=== PATIENT | female | born 1975 ===

== ENCOUNTER 2016-06-23 06:48 | Emergency (ER) | payer OTHER ==
[2016-06-23 06:57] VITALS: TEMP 98
--- NOTE | 2016-06-23 07:46 | ED PDOC ---
HPI: General Adult Time Seen by Provider: 06/23/16 07:05 Chief Complaint (Nursing): Psychiatric Evaluation Chief Complaint (Provider): crisis evaluation History Per: Family (daughter) History/Exam Limitations: no limitations Additional Complaint(s): 41yo female comes with family member for crisis evaluation of anxiety. Per daughter patient has Hx depression,taking depakote. 2 weeks ago patient had argument with who is no longer living at home. Daughter states patient has 1x admission for depression 15+ years ago. No suicidal or homicidal ideations. Neurologist: Haley Hook Past Medical History Reviewed: Historical Data, Nursing Documentation, Vital Signs Vital Signs: Last Vital Signs Temp 98 F 06/23/16 06:52 Pulse 86 06/23/16 06:52 Resp 16 06/23/16 06:52 BP 121/86 06/23/16 06:52 Pulse Ox 98 06/23/16 08:58 - Medical History PMH: Anxiety, Depression, Seizures - Family History Family History: States: Unknown Family Hx - Living Arrangements Living Arrangements: With Family - Social History Alcohol: None Drugs: Denies - Immunization History Hx Tetanus Toxoid Vaccination: No Hx Influenza Vaccination: Yes Hx Pneumococcal Vaccination: No - Home Medications Home Medications: Ambulatory Orders Medication Instructions Recorded Azithromycin [Zithromax Tri-Elliot] 500 mg PO DAILY #3 tab 11/25/13 Ondansetron ODT [Zofran ODT] 1 odt PO BID PRN #6 odt 11/25/13 ALPRAZolam [Xanax] 0.25 mg PO BID PRN #6 tab 06/23/16 - Allergies Allergies/Adverse Reactions: Allergies Allergy/AdvReac Type Severity Reaction Status Date / Time No Known Allergies Allergy Unverified 11/24/13 23:46 Review of Systems ROS Statement: Except As Marked, All Systems Reviewed And Found Negative Psych: Positive for: Anxiety, Depression. Negative for: Suicidal ideation, Other (homicidal ideation) Physical Exam - Reviewed Nursing Documentation Reviewed: Yes Vital Signs Reviewed: Yes - Physical Exam Appears: Positive for: Non-toxic, No Acute Distress Head Exam: Positive for: ATRAUMATIC, NORMAL INSPECTION, NORMOCEPHALIC Skin: Positive for: Warm, Dry Eye Exam: Positive for: EOMI, PERRL Cardiovascular/Chest: Positive for: Regular Rate, Rhythm Respiratory: Positive for: Normal Breath Sounds. Negative for: Rales, Rhonchi, Wheezing Extremity: Positive for: Normal ROM Neurologic/Psych: Positive for: Mood/Affect (flat affect), Other (poor eye contact, cooperative) - Laboratory Results Result Diagrams: 06/23/16 07:40 06/23/16 07:30 - ECG O2 Sat by Pulse Oximetry: 98 (RA) Pulse Ox Interpretation: Normal Medical Decision Making Medical Decision Makin medically cleared for crisis screening. [id number] case discussed with brush worker Safia who states patient will be discharged Dx depression per Dr. Graham. plant worker Safia is setting up outpatient therapy followup for the patient. [id number] per brush worker Safia patient has appointment with our [facility] tomorrow. Disposition - Clinical Impression Clinical Impression: Depressed, Anxiety - Patient ED Disposition Is Patient to be Admitted: No Counseled Patient/Family Regarding: Studies Performed, Diagnosis, Need For Followup, Rx Given - Disposition Referrals: [facility] [Outside] Disposition: Routine/Home Disposition Time: 08:58 Condition: STABLE Additional Instructions: See mental health clinic tomorrow as directed. Return to ER for any worse or new symptoms. Prescriptions: ALPRAZolam [Xanax] 0.25 mg PO BID PRN #6 tab PRN Reason: Anxiety Instructions: Anxiety (ED), Depression (ED) Print Language: CHINESE Additional Comments - Additional Comments Additional Comments: Scribe Attestation Documented by Joaquín Del Toro acting as a scribe for Bettye Chandler DO. Provider Attestation: All medical record entries made by the Scribe were at my direction and personally dictated by me. I have reviewed the chart and agree that the record accurately reflects my personal performance of the history, physical exam, medical decision making, and the department course for this patient. I have also personally directed, reviewed, and agree with the discharge instructions and disposition.
[2016-06-23 08:07] LABS: BASO # 0.1 K/uL (0.0-0.2); BASO % 1.2 % (0.0-2.0); EOS # 0.1 K/uL (0.0-0.7); EOS % 1.4 % (0.0-4.0); HEMATOCRIT 37.8 % (34.0-47.0); LYMPH # 1.8 K/uL (1.0-4.3); MEAN CORPUSCULAR HEMOGLOBIN 23.3 pg (27.0-31.0); MEAN CORPUSCULAR HGB CONC 31.5 g/dL (33.0-37.0); MEAN PLATELET VOLUME 9.5 fl (7.2-11.7); MONO # 0.3 K/uL (0.0-0.8); MONO % 6.2 % (0.0-10.0); NEUT # 3.1 K/uL (1.8-7.0); NEUT % 58.2 % (50.0-75.0); RED CELL DISTRIBUTION WIDTH 14.1 % (11.5-14.5); WHITE BLOOD COUNT 5.4 K/uL (4.8-10.8)
[2016-06-23 08:25] LABS: ALB/GLOB RATIO 1.2 (1.0-2.1); ALKALINE PHOSPHATASE 53 U/L (38-126); ALT/SGPT 25 U/L (9-52); AST/SGOT 17 U/L (14-36); BILIRUBIN,TOTAL 0.6 mg/dl (0.2-1.3); BLOOD UREA NITROGEN 8 mg/dl (7-17); CALCIUM 9.3 mg/dL (8.4-10.2); CARBON DIOXIDE 24 mmol/L (22-30); CHLORIDE 107 mmol/L (98-107); GFR AFRICAN-AMERICAN > 60; GLUCOSE,RANDOM 87 mg/dL (65-105); SODIUM 141 mmol/l (132-148); TOTAL PROTEIN 7.5 G/DL (6.3-8.2)
[2016-06-23 11:08] VITALS: BP 107/73; PULSE 65; RESP 20; O2SAT 99
--- NOTE | 2016-06-24 02:14 | CARD ---
APPROVED REPORT EKG Measurement Heart [id number] <Conclusion> Sinus bradycardia Otherwise normal ECG
== END 2016-06-23 10:55 | disposition home or self-care (01) ==
LOC: H.ER 06:48
DX: F41.9 Anxiety disorder, unspecified (principal); F32.9 Major depressive disorder, single episode, unspecified

== ENCOUNTER 2018-02-14 11:04 | Emergency (ER) | payer MEDICAID, OTHER ==
[2018-02-14 11:08] VITALS: BMI 28.5
[2018-02-14 11:09] VITALS: TEMP 99
--- NOTE | 2018-02-14 11:28 | ED PDOC ---
HPI: Back Time Seen by Provider: 02/14/18 11:14 Chief Complaint (Nursing): Back Pain Chief Complaint (Provider): low back pain History Per: Patient, Family (daughter) History/Exam Limitations: no limitations Onset/Duration Of Symptoms: Days (1) Current Symptoms Are (Timing): Still Present Exacerbating Factor(s): Turning, Movement Additional Complaint(s): 42 y/o female brought in by EMS for evaluation of low back pain x 1 day. Patient states she has a history of lspine disc herniation; yesterday while mopping the floor felt a sharp pain in lower back radiating to both legs, causing her to fall. Patient states this morning she was unable to get out of bed due to pain, so she took Two Percocets and came to ED. Denies numbness/weakness lower extremities, bowel/bladder incontinence. Past Medical History Reviewed: Historical Data, Nursing Documentation, Vital Signs Vital Signs: Last Vital Signs Temp 99 F 02/14/18 11:08 Pulse 70 02/14/18 11:08 Resp 20 02/14/18 11:08 BP 130/93 H 02/14/18 11:08 Pulse Ox 98 02/14/18 11:08 - Medical History PMH: Anxiety, Back Problems, Depression, Seizures Denies: Diabetes, Hepatitis, HIV, HTN, Sexually Transmitted Disease - Family History Family History: States: Unknown Family Hx - Immunization History Hx Tetanus Toxoid Vaccination: No Hx Influenza Vaccination: Yes Hx Pneumococcal Vaccination: No - Home Medications Home Medications: Ambulatory Orders Medication Instructions Recorded Azithromycin [Zithromax Tri-Elliot] 500 mg PO DAILY #3 tab 11/25/13 Ondansetron ODT [Zofran ODT] 1 odt PO BID PRN #6 odt 11/25/13 ALPRAZolam [Xanax] 0.25 mg PO BID PRN #6 tab 06/23/16 Cyclobenzaprine [Cyclobenzaprine 10 mg PO BID PRN #14 tab 02/14/18 HCl] Lidocaine 5% [Lidoderm] 1 patch TOP DAILY #7 patch 02/14/18 Naproxen [Naprosyn] 500 mg PO Q12 PRN #20 tablet 02/14/18 - Allergies Allergies/Adverse Reactions: Allergies Allergy/AdvReac Type Severity Reaction Status Date / Time No Known Allergies Allergy Unverified 11/24/13 23:46 Review of Systems ROS Statement: Except As Marked, All Systems Reviewed And Found Negative Musculoskeletal: Positive for: Back Pain Physical Exam - Reviewed Nursing Documentation Reviewed: Yes Vital Signs Reviewed: Yes - Physical Exam Appears: Positive for: Well, Non-toxic, Uncomfortable Head Exam: Positive for: ATRAUMATIC, NORMAL INSPECTION, NORMOCEPHALIC Skin: Positive for: Normal Color Cardiovascular/Chest: Positive for: Regular Rate, Rhythm Respiratory: Positive for: Normal Breath Sounds Back: Positive for: Vertebral Tenderness (lspine tenderness without bony deformity), Decreased ROM (secondary to pain at lower back), Muscle Spasm (bilateral lspine paravertebral tenderness). Negative for: L CVA Tenderness, R CVA Tenderness Extremity: Positive for: Normal ROM Neurologic/Psych: Positive for: Alert, Oriented (x3). Negative for: Motor/Sensory Deficits - ECG O2 Sat by Pulse Oximetry: 98 - Other Rad lspine xray X-Ray: Viewed By Me, Read By Radiologist X-Ray Interpretation: no acute findings - Progress ED Course And Treament: -Toradol IM -Flexeril PO -lspine xray -upreg On re-eval, patient states pain improved Patient educated on findings, discharged with rx Naproxen, Flexeril, Lidoderm Advised warm compresses, follow up PMD/pain management within 2-3 days Return precautions given Disposition - Clinical Impression Clinical Impression: Low back pain - Patient ED Disposition Is Patient to be Admitted: No Counseled Patient/Family Regarding: Studies Performed, Diagnosis, Need For Followup, Rx Given - Disposition Disposition: Routine/Home Disposition Time: 13:33 Condition: IMPROVED Prescriptions: Cyclobenzaprine [Cyclobenzaprine HCl] 10 mg PO BID PRN #14 tab PRN Reason: Muscle Spasm Lidocaine 5% [Lidoderm] 1 patch TOP DAILY #7 patch Naproxen [Naprosyn] 500 mg PO Q12 PRN #20 tablet PRN Reason: Pain, Moderate (4-7) Instructions: Low Back Pain in Adults Forms: [employer] (Amharic) Print Language: INDONESIAN
--- NOTE | 2018-02-14 13:08 | RAD ---
Date of service: 02/14/2018 PROCEDURE: Radiographs of the Lumbar Spine. HISTORY: low back pain COMPARISON: No prior. FINDINGS: BONES: Normal alignment. No listhesis. No fracture. DISC SPACES: Unremarkable. OTHER FINDINGS: None. IMPRESSION: Unremarkable radiographs of the lumbar spine.
[2018-02-14 13:58] VITALS: BP 110/70; PULSE 71; RESP 19; O2SAT 99
== END 2018-02-14 14:04 | disposition home or self-care (01) ==
LOC: H.ER 11:04
DX: M54.5 Low back pain (principal)
CPT/HCPCS: 72100; 81025; 96372; 99284; J1885